=== PATIENT | male | born 1995 | race Caucasian/White ===

== ENCOUNTER 2019-06-20 11:48 | Emergency (ER) | payer OTHER ==
[2019-06-20 11:53] VITALS: BP 135/87
[2019-06-20] MEDS ORDERED: RABIES VACCINE (PCEC)/PF 2.5 UNIT/1 ML KIT IM ONE (12:31)
--- NOTE | 2019-06-20 12:52 | ER Document Report ---
HPI - HPI Time Seen by Provider: 06/20/19 12:23 Pain Level: Denies Notes: Patient is a 24-year-old male presenting to the emergency department chief complaint of request for rabies vaccine. Patient was bitten by a dog on 06/14/2019. He states he was also seen here on 06/17/2019. He states that he just found out today from the health department that the dog was not vaccinated and is requesting rabies vaccine at this time. Patient reports he was previously vaccinated with the rabies series as a child. - CONSTITUTIONAL Constitutional: DENIES: Fever, Chills - REPRODUCTIVE Reproductive: DENIES: : Past Medical History - General Information source: Patient - Social History Smoking Status: Never Smoker Family History: Reviewed & Not Pertinent Patient has suicidal ideation: No Patient has homicidal ideation: No - Medical History Medical History: Negative Past Surgical History: Reports: Hx Oral Surgery - wisdom teeth Vertical Provider Document - CONSTITUTIONAL Notes: PHYSICAL EXAMINATION: GENERAL: Well-appearing, well-nourished and in no acute distress. HEAD: Atraumatic, normocephalic. EYES: Pupils equal round extraocular movements intact, conjunctiva are normal. ENT: Nares patent NECK: Normal range of motion LUNGS: No respiratory distress Musculoskeletal: Normal range of motion NEUROLOGICAL: Normal speech, normal gait. PSYCH: Normal mood, normal affect. SKIN: Puncture wounds noted to anterior left jones, no erythema noted. Course - Re-evaluation Re-evalutation: Rabies vaccine ordered. - Vital Signs Vital signs: Temp Pulse Resp BP Pulse Ox 98.2 F 73 16 135/87 H 98 06/20/19 11:51 06/20/19 11:51 06/20/19 11:51 06/20/19 11:51 06/20/19 11:51 Discharge - Discharge Clinical Impression: Encounter for prophylactic rabies immune globin Condition: Stable Disposition: HOME, SELF-CARE Additional Instructions: You were given your first dose of the rabies vaccination here today. Please return in 3 days for your last dose. Check in at the [facility] as a nurse visit.
== END 2019-06-20 13:10 | disposition home or self-care (01) ==
LOC: ER 11:48
DX: Z23 Encounter for immunization (principal); W54.0XXA Bitten by dog, initial encounter
CPT/HCPCS: 90471; 90675; 99283